=== PATIENT | male | born 1935 | race Caucasian/White ===

== ENCOUNTER 2020-07-19 09:13 | Emergency (ER) | payer MEDICARE ==
[2020-07-19] MEDS ORDERED: Lidocaine 2% Jelly 10 ML Urojet MUCMEM ONE (09:56)
--- NOTE | 2020-07-19 10:33 | EDM.PDOC ---
ED HPI GENERAL MEDICAL PROBLEM - General Chief Complaint: Genitourinary Problem Stated Complaint: URINE IN BLOOD Time Seen by Provider: 07/19/20 10:20 Source of Information: Reports: Patient History Limitations: Reports: No Limitations - History of Present Illness INITIAL COMMENTS - FREE TEXT/NARRATIVE: Patient presents after being initially evaluated in the [facility] walk-in clinic today because of bloody urine. This began a couple days ago and has increased in intensity since then. 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 He has done generally well since then although he has not been to see a doctor for anything in slightly over a year. He was seen by one of the nurse practitioners at his hometown clinic in [place] a month ago to get medications renewed. He is not aware of any particular evaluation done or results of same. He has no pain when urinating but it has been difficult for him to get urine out. He also describes some almost constipation with difficulty pushing stool out recently. He denies hard, pamela stool but it was an effort for him to go. It is unclear if the onset of the hematuria was related to those exertional bowel movements? He otherwise denies fever or chills, nausea or vomiting, cough or fever. Onset: Gradual Duration: Day(s): (3) Severity: Mild Improves with: Reports: None Worsens with: Reports: None - Related Data Allergies Allergy/AdvReac Type Severity Reaction Status Date / Time Sulfa (Sulfonamide Allergy Other Verified 07/19/20 09:34 Antibiotics) Home Meds: Home Meds Dorzolamide HCl/Timolol Maleat [Dorzolamide-Timolol Eye Drops] 1 drop OP DAILY 07/19/20 [History] Fluticasone Propionate [Flonase] 2 spray IH BID 07/19/20 [History] Latanoprost [Xalatan] 2.5 ml OP DAILY 07/19/20 [History] Lovastatin 20 mg PO DAILY 07/19/20 [History] Metoprolol Tartrate 50 mg PO DAILY 07/19/20 [History] Omeprazole 20 mg PO DAILY 07/19/20 [History] Temazepam [Restoril] 15 mg PO BEDTIME PRN 07/19/20 [History] Past Medical History HEENT History: Reports: Cataract, Glaucoma, Impaired Vision, Macular Degeneration, Other (See Below) Other HEENT History: blind in right eye. Cardiovascular History: Reports: CAD, High Cholesterol, Hypertension, [place] Oncologic (Cancer) History: Reports: Bladder, Renal - Past Surgical History HEENT Surgical History: Reports: Cataract Surgery Cardiovascular Surgical History: Reports: Coronary Artery Bypass Male Surgical History: Reports: Nephrectomy, Other (See Below) Other Male Surgeries/Procedures: kidney removed d/t cancer. bladder cancer. Social & Family History - Tobacco Use Tobacco Use Status *Q: Never Tobacco User - Caffeine Use Caffeine Use: Reports: Coffee - Recreational Drug Use Recreational Drug Use: No ED ROS GENERAL - Review of Systems Review Of Systems: See Below Constitutional: Reports: No Symptoms HEENT: Reports: No Symptoms Respiratory: Reports: No Symptoms Cardiovascular: Reports: No Symptoms GI/Abdominal: Reports: Constipation (What he describes as "almost constipation".). Denies: Abdominal Pain : Reports: Frequency, Hematuria. Denies: Discharge, Dysuria, Flank Pain, Urgency Musculoskeletal: Reports: No Symptoms Skin: Reports: No Symptoms ED EXAM, RENAL/ - Physical Exam Exam: See Below Text/Narrative:: This is a quiet adult male interviewed in room 4. He is accompanied by family who provide additional historical background. Patient is a man of few words. Exam Limited By: No Limitations General Appearance: Alert, No Apparent Distress Neck: Supple Respiratory/Chest: No Respiratory Distress, Lungs Clear Cardiovascular: Regular Rate, Rhythm GI/Abdominal: Soft, Non-Tender, No Distention Extremities: Normal Inspection Neurological: Alert, Oriented, Slow to Respond Course - Vital Signs Last Recorded V/S: Last Vital Signs Temp 35.5 C L 07/19/20 09:42 Pulse 81 07/19/20 15:03 Resp 12 07/19/20 10:40 BP 155/55 H 07/19/20 15:03 Pulse Ox 98 07/19/20 13:12 - Orders/Labs/Meds Orders: Active Orders 24 hr Category Date Time Status Insert Urinary Catheter [OM.PC] Q24H Care 07/19/20 10:00 Ordered Urinary Catheter Assessment [RC] ASDIRECTED Care 07/19/20 09:57 Active Sodium Chloride 0.9% [Normal Saline] 1,000 ml Med 07/19/20 13:00 Active IV ASDIRECTED Sodium Chloride 0.9% [Saline Flush] Med 07/19/20 10:36 Active 10 ml FLUSH ASDIRECTED PRN Saline Lock Insert [OM.PC] Routine Oth 07/19/20 10:36 Ordered Medication Orders Sodium Chloride (Normal Saline) 1,000 mls @ 250 mls/hr IV ASDIRECTED MARYBEL Last Admin: 07/19/20 13:14 Dose: 250 mls/hr Documented by: SHANTE Sodium Chloride (Saline Flush) 10 ml FLUSH ASDIRECTED PRN PRN Reason: Keep Vein Open Last Admin: 07/19/20 11:11 Dose: 10 ml Documented by: SHANTE Labs: Laboratory Tests 07/19/20 07/19/20 07/19/20 Range/Units 10:06 10:58 10:58 WBC 7.6 (4.5-11.0) K/uL RBC 3.77 L (4.30-5.90) M/uL Hgb 11.7 L (12.0-15.0) g/dL Hct 36.3 L (40.0-54.0) % MCV 96 (80-98) fL MCH 31 (27-31) pg MCHC 32 (32-36) % Plt Count 145 L (150-400) K/uL Neut % (Auto) 72 H (36-66) % Lymph % (Auto) 14 L (24-44) % [place] % (Auto) 10 H (2-6) % Eos % (Auto) 4 (2-4) % Baso % (Auto) 1 (0-1) % PT 11.4 (9.5-12.0) sec INR 1.05 (0.80-1.20) Sodium (140-148) mmol/L Potassium (3.6-5.2) mmol/L Chloride (100-108) mmol/L Carbon Dioxide (21-32) mmol/L Anion Gap (5.0-14.0) mmol/L BUN (7-18) mg/dL Creatinine (0.8-1.3) mg/dL Est Cr Clr Drug Dosing mL/min Estimated GFR (MDRD) (>60) Glucose (74-106) mg/dL Calcium (8.5-10.1) mg/dL Total Bilirubin (0.2-1.0) mg/dL AST (15-37) U/L ALT (12-78) U/L Alkaline Phosphatase (46-116) U/L Total Protein (6.4-8.2) g/dL Albumin (3.4-5.0) g/dL Globulin (2.3-3.5) g/dL Albumin/Globulin Ratio (1.2-2.2) Urine Color Red A (YELLOW) Urine Appearance Turbid A (CLEAR) Urine pH TNP Ur Specific [place] TNP Urine Protein TNP Urine Glucose (UA) TNP Urine Ketones TNP Urine Occult Blood Large (NEGATIVE) Urine Nitrite TNP Urine Bilirubin TNP Urine Urobilinogen TNP Ur Leukocyte Esterase TNP Urine RBC Packed H (0-5) Urine WBC 0-5 (0-5) Ur Epithelial Cells Rare Amorphous Sediment Occasional Urine Bacteria Occasional Urine Mucus Rare Urinalysis Comment 07/19/20 Range/Units 10:58 WBC (4.5-11.0) K/uL RBC (4.30-5.90) M/uL Hgb (12.0-15.0) g/dL Hct (40.0-54.0) % MCV (80-98) fL MCH (27-31) pg MCHC (32-36) % Plt Count (150-400) K/uL Neut % (Auto) (36-66) % Lymph % (Auto) (24-44) % [place] % (Auto) (2-6) % Eos % (Auto) (2-4) % Baso % (Auto) (0-1) % PT (9.5-12.0) sec INR (0.80-1.20) Sodium 139 L (140-148) mmol/L Potassium 4.0 (3.6-5.2) mmol/L Chloride 101 (100-108) mmol/L Carbon Dioxide 27 (21-32) mmol/L Anion Gap 15.0 H (5.0-14.0) mmol/L BUN 17 (7-18) mg/dL Creatinine 1.4 H (0.8-1.3) mg/dL Est Cr Clr Drug Dosing 36.72 mL/min Estimated GFR (MDRD) 48 L (>60) Glucose 104 (74-106) mg/dL Calcium 8.7 (8.5-10.1) mg/dL Total Bilirubin 0.6 (0.2-1.0) mg/dL AST 17 (15-37) U/L ALT 19 (12-78) U/L Alkaline Phosphatase 63 (46-116) U/L Total Protein 6.6 (6.4-8.2) g/dL Albumin 3.9 (3.4-5.0) g/dL Globulin 2.7 (2.3-3.5) g/dL Albumin/Globulin Ratio 1.4 (1.2-2.2) Urine Color (YELLOW) Urine Appearance (CLEAR) Urine pH Ur Specific [place] Urine Protein Urine Glucose (UA) Urine Ketones Urine Occult Blood (NEGATIVE) Urine Nitrite Urine Bilirubin Urine Urobilinogen Ur Leukocyte Esterase Urine RBC (0-5) Urine WBC (0-5) Ur Epithelial Cells Amorphous Sediment Urine Bacteria Urine Mucus Urinalysis Comment Meds: Medications Generic Name Dose Route Start Last Admin Trade Name Elza PRN Reason Stop Dose Admin Sodium Chloride 1,000 mls @ 250 mls/hr 07/19/20 13:00 07/19/20 13:14 Normal Saline IV 250 mls/hr ASDIRECTED MARYBEL Administration Sodium Chloride 10 ml 07/19/20 10:36 07/19/20 11:11 Saline Flush FLUSH 10 ml ASDIRECTED PRN Administration Keep Vein Open Discontinued Medications Generic Name Dose Route Start Last Admin Trade Name Elza PRN Reason Stop Dose Admin Sodium Chloride 84 mls @ 3.5 mls/sec 07/19/20 14:15 07/19/20 14:43 Normal Saline IV 07/19/20 14:16 3 mls/sec ASDIRECTED MARYBEL Administration Iopamidol 100 ml 07/19/20 14:09 07/19/20 14:43 Isovue-300 (61%) IV 07/19/20 14:10 100 ml ONETIME ONE Administration Lidocaine HCl 10 ml 07/19/20 09:56 07/19/20 10:01 Xylocaine 2% Jelly MUCMEM 07/19/20 09:57 10 ml ONETIME ONE Administration Sodium Chloride 10 ml 07/19/20 14:09 07/19/20 14:43 Saline Flush FLUSH 07/19/20 14:10 10 ml ONETIME ONE Administration - Re-Assessments/Exams Free Text/Narrative Re-Assessment/Exam: 12/12/20 10:50 Bladder scan was performed by nursing staff which showed almost 1000 mL of very bloody urine. He felt more comfortable following drainage of the bladder. I told him that we may need to do a CT scan of his abdomen region given the current hematuria and his prior cancer history. He understands. 07/19/20 12:52 His GFR is in the mid 30s however hematuria is still continuing and there is concern for etiology of this bleeding such as undiagnosed tumor. I will obtain a CT urogram and then follow with IV fluid after the scan is completed. 07/19/20 16:26 Radiology evaluation of his CT urogram has concern for a left-sided bladder mass or possible residual from previous surgery however the bladder is asymmetric. His primary care team is in the [facility] and he would like to see urology in the same system. I spoke with Dr. Ham, the urologist salesperson driver today. CT urogram images have been transmitted to [facility] but were not available for viewing where Dr. Ham was located at the time of our call. He recommends leaving the Alston catheter in place. He will see him in consultation in clinic this coming week. Patient should ensure that he is drinking enough fluids to keep things flowing through. The patient is acquainted with bladder catheters from previous bladder surgery. If patient has concerns about urinary retention or other problems prior to his office visit in urology, he can call them, his primary care team, or return here if feeling worse in any way. No new medications were prescribed. His daughter will actually be the best point of contact to coordinate appointments as the patient's phone does not have voicemail. Departure - Departure Time of Disposition: 15:58 Disposition: Home, Self-Care 01 Clinical Impression: Hematuria syndrome, Bladder mass, Retention of urine - Discharge Information Instructions: Acute Urinary Retention, Male, [id number], Hematuria, Adult Referrals: Mark Strickland NP [Primary Care Provider] - Forms: ED Department Discharge Additional Instructions: Bladder catheter will remain in place. Make sure that you are drinking at least a quart and a half of liquid per day. Liquid coming through the kidneys to the bladder will help blood and clots go out through the catheter. Continue your current medications. The urologist I spoke with, Dr. Ham, will arrange to see you in his clinic this coming week. Have your daughter call the urology scheduling staff on Tuesday to update them regarding points of contact and the eventual date and time of your appointment. The [facility] scheduling number [phone] on Tuesday. You will be directed to the Urology scheduling team. If feeling worse in any way before then, return to ER. Sepsis Event Note (ED) - Evaluation Sepsis Screening Result: No Definite Risk - Focused Exam Vital Signs: Vital Signs Temp Pulse Resp BP Pulse Ox 07/19/20 15:03 81 155/55 H 07/19/20 13:12 78 158/71 H 98 07/19/20 12:13 69 153/69 H 98 07/19/20 10:40 68 12 148/66 H 98 07/19/20 09:42 35.5 C L 80 18 160/59 H 98 - My Orders Last 24 Hours: My Active Orders 07/19/20 09:57 Urinary Catheter Assessment [RC] ASDIRECTED 07/19/20 10:00 Insert Urinary Catheter [OM.PC] Q24H 07/19/20 10:36 Sodium Chloride 0.9% [Saline Flush] 10 ml FLUSH ASDIRECTED PRN Saline Lock Insert [OM.PC] Routine 07/19/20 13:00 Sodium Chloride 0.9% [Normal Saline] 1,000 ml IV ASDIRECTED - Assessment/Plan Last 24 Hours: My Active Orders 07/19/20 09:57 Urinary Catheter Assessment [RC] ASDIRECTED 07/19/20 10:00 Insert Urinary Catheter [OM.PC] Q24H 07/19/20 10:36 Sodium Chloride 0.9% [Saline Flush] 10 ml FLUSH ASDIRECTED PRN Saline Lock Insert [OM.PC] Routine 07/19/20 13:00 Sodium Chloride 0.9% [Normal Saline] 1,000 ml IV ASDIRECTED
[2020-07-19] MEDS ORDERED: Sodium Chloride 0.9% 10 ML Syringe FLUSH PRN (10:36)
[2020-07-19] MEDS ORDERED: Sodium Chloride 0.9% 1,000 ML IV SCH (13:00)
[2020-07-19] MEDS ORDERED: Iopamidol 612 MG/ML 500 ML Multipack Bottle IV ONE (14:09)
[2020-07-19] MEDS ORDERED: Sodium Chloride 0.9% 10 ML Syringe FLUSH ONE (14:09)
--- NOTE | 2020-07-19 14:59 | CRLCT ---
Indication: Gross hematuria. History of bladder cancer/nephrectomy. Technique: Multiple contiguous axial images were obtained from the lung bases is symphysis pubis without intravenous contrast enhancement. Then, after the intravenous administration 100 milliliters Isovue-300, multiple contiguous axial images were obtained through the level of the kidneys. Then, delayed images were obtained from the lung bases through the symphysis pubis. Please note that all CT scans at this facility use dose modulation, iterative reconstruction, and/or weight-based dosing when appropriate to reduce radiation dose to as low as reasonably achievable. Comparison: None Findings: On the unenhanced images, trace bilateral pleural effusions are identified. The heart is normal in size. No pericardial effusions identified. A trace hiatal hernias identified. Gallstones are identified. Aortic calcifications are identified. A Alston catheter is in place. The liver, pancreas, spleen, and left adrenal gland are normal. Gallstones are identified. No intrahepatic biliary ductal dilatation is identified. There is mild fatty replacement of the pancreas. In the pelvis, the prostate gland is borderline in size. The small and large bowel are normal in caliber. Colonic diverticulosis is identified. There is no evidence of diverticulitis. The aorta is normal in caliber. Vascular calcifications are identified. Degenerative changes of the spine are identified. Vacuum disc phenomenon is identified at T12-L1, L3-4, L4-5, and L5-S1. No lytic or blastic lesions are identified. Postoperative changes of right nephrectomy are identified. Postoperative changes of right adrenalectomy are identified. The left kidney enhances within normal limits. No renal masses are identified on the left. No hydronephrosis is identified on the left. A Alston catheter is present within the urinary bladder. Thickening of the wall of the urinary bladder is identified. Indentation is identified along left inferior aspect of the bladder. This is seen on coronal images number 64, series 9 and axial image number 116, series 4. This is believed to be due from the prostate gland. However, a mass within the bladder at this level cannot be excluded. Superior to this, near the dome of the bladder, there is a soft tissue density. This measures 2.2 x 1.8 x 3.2 cm in size. Residual/recurrent disease cannot be completely excluded. Consideration should be given to a cystoscopy. Impression: Postoperative changes of a right nephrectomy and right adrenalectomy. Thickening of the wall of the urinary bladder. The suspected soft tissue mass is identified to the left of midline superiorly, with residual/recurrent disease not being excluded. Please note that all CT scans at this facility use dose modulation, iterative reconstruction, and/or weight-based dosing when appropriate to reduce radiation dose to as low as reasonably achievable. Dictated by Justyna Arregaa MD @ Jul 19 2020 2:45PM Signed by Dr. Justyna Arreaga @ Jul 19 2020 2:57PM
== END 2020-07-19 16:31 | disposition home or self-care (01) ==
LOC: JP.ED 09:13
DX: N32.9 Bladder disorder, unspecified (principal); R33.9 Retention of urine, unspecified; I10 Essential (primary) hypertension; E78.00 Pure hypercholesterolemia, unspecified; I25.2 Old myocardial infarction; I25.10 Atherosclerotic heart disease of native coronary artery without angina pectoris; Z88.2 Allergy status to sulfonamides; Z79.899 Other long term (current) drug therapy
CPT/HCPCS: 36415; 51702; 74178; 80053; 81001; 85025; 85610; 99283; 99284; J7030; Q9967

== ENCOUNTER 2020-07-20 12:51 | Emergency (ER) | payer MEDICARE ==
--- NOTE | 2020-07-20 14:53 | EDM.PDOC ---
ED HPI GENERAL MEDICAL PROBLEM - General Chief Complaint: Genitourinary Problem Stated Complaint: CATH IS PLUGGED Time Seen by Provider: 07/20/20 14:48 Source of Information: Reports: Patient History Limitations: Reports: No Limitations - History of Present Illness INITIAL COMMENTS - FREE TEXT/NARRATIVE: pt was not getting drainage in the alicia bag. It did appear that he had this plugged with the position it was in. Onset: Today, Other (pt had the cath put in yesterday and he had ovwer 1000 cc of fluid at that time. ) Duration: Hour(s): Location: Reports: Abdomen - Related Data Allergies Allergy/AdvReac Type Severity Reaction Status Date / Time Sulfa (Sulfonamide Allergy Other Verified 07/20/20 13:21 Antibiotics) Home Meds: Home Meds Dorzolamide HCl/Timolol Maleat [Dorzolamide-Timolol Eye Drops] 1 drop OP DAILY 07/19/20 [History] Fluticasone Propionate [Flonase] 2 spray IH BID 07/19/20 [History] Latanoprost [Xalatan] 2.5 ml OP DAILY 07/19/20 [History] Lovastatin 20 mg PO DAILY 07/19/20 [History] Metoprolol Tartrate 50 mg PO DAILY 07/19/20 [History] Omeprazole 20 mg PO DAILY 07/19/20 [History] Temazepam [Restoril] 15 mg PO BEDTIME PRN 07/19/20 [History] Past Medical History HEENT History: Reports: Cataract, Glaucoma, Impaired Vision, Macular Degeneration, Other (See Below) Other HEENT History: blind in right eye. Cardiovascular History: Reports: CAD, High Cholesterol, Hypertension, [place] Oncologic (Cancer) History: Reports: Bladder, Renal - Past Surgical History HEENT Surgical History: Reports: Cataract Surgery Cardiovascular Surgical History: Reports: Coronary Artery Bypass Male Surgical History: Reports: Nephrectomy, Other (See Below) Other Male Surgeries/Procedures: kidney removed d/t cancer. bladder cancer. Social & Family History - Caffeine Use Caffeine Use: Reports: Coffee ED ROS GENERAL - Review of Systems Review Of Systems: See Below Constitutional: Reports: No Symptoms HEENT: Reports: No Symptoms Respiratory: Reports: No Symptoms Cardiovascular: Reports: No Symptoms Endocrine: Reports: No Symptoms GI/Abdominal: Reports: No Symptoms : Reports: Other (pt feels like his alicia is not draining right. ) Musculoskeletal: Reports: No Symptoms ED EXAM, RENAL/ - Physical Exam Exam: See Below Text/Narrative:: pt arrived wityh a history of not draining his bag and he had 800 cc in the bag. He had the tube plugged because of the position it was in. Exam Limited By: No Limitations General Appearance: Alert, No Apparent Distress, Anxious (Male) Exam: Other ( It was irrigated and it was draining well. He had a leg bag placed and this appeared to work. He plans to make an appointment with urology. ) Course - Vital Signs Last Recorded V/S: Last Vital Signs Temp 37.0 C 07/20/20 13:43 Pulse 74 07/20/20 13:43 Resp 16 07/20/20 13:43 BP 180/80 H 07/20/20 13:43 Pulse Ox 99 07/20/20 13:43 Departure - Departure Time of Disposition: 14:53 Disposition: Home, Self-Care 01 Condition: Fair Clinical Impression: Alicia catheter problem - Discharge Information Referrals: Mark Strickland NP [Primary Care Provider] - Care Plan Goals: push fluids, rtc if further problems. Sepsis Event Note (ED) - Evaluation Sepsis Screening Result: No Definite Risk - Focused Exam Vital Signs: Vital Signs Temp Pulse Resp BP Pulse Ox 07/20/20 13:43 37.0 C 74 16 180/80 H 99 07/20/20 13:27 37.0 C 74 16 180/80 H 99
== END 2020-07-20 15:00 | disposition home or self-care (01) ==
LOC: JP.ED 12:51
DX: T83.098A Other mechanical complication of other urinary catheter, initial encounter (principal); I25.10 Atherosclerotic heart disease of native coronary artery without angina pectoris; E78.00 Pure hypercholesterolemia, unspecified; I10 Essential (primary) hypertension; I25.2 Old myocardial infarction; Z79.899 Other long term (current) drug therapy; Z88.2 Allergy status to sulfonamides
CPT/HCPCS: 99283

== ENCOUNTER 2022-06-24 19:07 | Observation (INO) | payer MEDICARE ==
[2022-06-24] MEDS ORDERED: Sodium Chloride 0.9% 10 ML Syringe FLUSH PRN (19:26)
[2022-06-24] MEDS ORDERED: Sodium Chloride 0.9% 1,000 ML IV SCH (19:30)
[2022-06-24] MEDS ORDERED: Metoprolol Tartrate 50 MG Tab PO SCH (20:30)
[2022-06-24 20:40] LABS: ESTIMATED GFR 59 mL/min (>60)
[2022-06-24] MEDS ORDERED: Pantoprazole 40 MG Tab.CR PO SCH (21:00)
[2022-06-24] MEDS ORDERED: Ondansetron 4 MG/2 ML SDV IV PRN (22:12)
[2022-06-24] MEDS ORDERED: oxyCODONE 5 MG Tab PO PRN (22:12)
[2022-06-24] MEDS ORDERED: Morphine 2 MG/ML SYRINGE IVPUSH PRN (22:12)
[2022-06-24] MEDS ORDERED: LORazepam 2 MG/ML SDV IV PRN (22:12)
[2022-06-24] MEDS ORDERED: Ondansetron 4 MG Tab.DIS PO PRN (22:12)
[2022-06-24] MEDS ORDERED: Albuterol 0.083% 2.5 MG/3 ML Neb Soln NEB PRN (22:12)
[2022-06-24] MEDS ORDERED: Docusate Sodium 100 MG Cap PO PRN (22:12)
[2022-06-24] MEDS ORDERED: Acetaminophen 325 MG Tab PO PRN (22:12)
[2022-06-24] MEDS ORDERED: Bisacodyl 5 MG Tab PO PRN (22:12)
[2022-06-24] MEDS: Temazepam 15 MG Cap PO SCH (23:46)
[2022-06-24] MEDS: Sodium Chloride 0.9% 1,000 ML IV SCH (23:46)
[2022-06-24] MEDS: Fluticasone NASAL Spray 16 GM Bottle NASBOTH SCH (23:47)
[2022-06-25 05:18] LABS: ESTIMATED GFR 65 mL/min (>60)
[2022-06-25] MEDS ORDERED: Potassium Chloride 20 MEQ Tab.ER PO ONE (08:13)
[2022-06-25] MEDS: Enoxaparin 40 MG/0.4 ML Syringe SUBCUT SCH (11:08)
[2022-06-25] MEDS: Dorzolamide/Timolol 2%-0.5% Ophth Soln 10 ML Bottle EYERT SCH (11:09)
[2022-06-25] MEDS: Fluticasone NASAL Spray 16 GM Bottle NASBOTH SCH ×2 (11:10→20:54)
[2022-06-25] MEDS: Latanoprost 0.005% Ophth Soln 2.5 ML Bottle EYERT SCH (11:10)
[2022-06-25] MEDS: Metoprolol Tartrate 50 MG **PTOM PO SCH ×2 (11:24→20:54)
[2022-06-25] MEDS: OMEPRAZOLE 20MG **PTOM PO SCH (20:54)
[2022-06-25] MEDS: LOVASTATIN 20 MG PO SCH (20:54)
[2022-06-25] MEDS: Temazepam 15 MG Cap PO SCH (20:57)
[2022-06-25] MEDS ORDERED: Pravastatin 20 MG Tab PO SCH (21:00)
[2022-06-26] MEDS: Sodium Chloride 0.9% 1,000 ML IV SCH ×3 (00:53→16:50)
[2022-06-26] MEDS: Latanoprost 0.005% Ophth Soln 2.5 ML Bottle EYERT SCH (08:41)
[2022-06-26] MEDS: Fluticasone NASAL Spray 16 GM Bottle NASBOTH SCH ×2 (08:42→20:38)
[2022-06-26] MEDS: Enoxaparin 40 MG/0.4 ML Syringe SUBCUT SCH (08:42)
[2022-06-26] MEDS: Metoprolol Tartrate 50 MG **PTOM PO SCH ×2 (08:42→20:35)
[2022-06-26] MEDS: Dorzolamide/Timolol 2%-0.5% Ophth Soln 10 ML Bottle EYERT SCH (08:42)
[2022-06-26] MEDS ORDERED: Furosemide 40 MG/4 ML VIAL IVPUSH ONE (10:55)
[2022-06-26] MEDS: LOVASTATIN 20 MG PO SCH (20:37)
[2022-06-26] MEDS: OMEPRAZOLE 20MG **PTOM PO SCH (20:37)
[2022-06-26] MEDS: Temazepam 15 MG Cap PO SCH (20:39)
[2022-06-27] MEDS: Sodium Chloride 0.9% 1,000 ML IV SCH (00:50)
[2022-06-27] MEDS: Enoxaparin 40 MG/0.4 ML Syringe SUBCUT SCH (08:11)
[2022-06-27] MEDS: Metoprolol Tartrate 50 MG **PTOM PO SCH ×2 (08:11→21:02)
[2022-06-27] MEDS: Dorzolamide/Timolol 2%-0.5% Ophth Soln 10 ML Bottle EYERT SCH (08:11)
[2022-06-27] MEDS: Fluticasone NASAL Spray 16 GM Bottle NASBOTH SCH ×2 (08:12→21:03)
[2022-06-27] MEDS: Latanoprost 0.005% Ophth Soln 2.5 ML Bottle EYERT SCH (08:12)
[2022-06-27] MEDS: OMEPRAZOLE 20MG **PTOM PO SCH (21:01)
[2022-06-27] MEDS: LOVASTATIN 20 MG PO SCH (21:02)
[2022-06-27] MEDS: Temazepam 15 MG Cap PO SCH (21:06)
[2022-06-28] MEDS: Metoprolol Tartrate 50 MG **PTOM PO SCH (08:14)
[2022-06-28] MEDS: Fluticasone NASAL Spray 16 GM Bottle NASBOTH SCH (08:17)
[2022-06-28] MEDS: Enoxaparin 40 MG/0.4 ML Syringe SUBCUT SCH (08:17)
[2022-06-28] MEDS: Latanoprost 0.005% Ophth Soln 2.5 ML Bottle EYERT SCH (08:17)
[2022-06-28] MEDS: Dorzolamide/Timolol 2%-0.5% Ophth Soln 10 ML Bottle EYERT SCH (08:18)
[2022-06-28] MEDS ORDERED: Sodium Phosphate,Monobasic/Sodium Phosphate,Dibasic Enema 133 ML Bottle RECTAL PRN (13:17)
[2022-06-28] MEDS ORDERED: Bisacodyl 10 MG Supp RECTAL ONE (13:35)
== END 2022-06-28 14:25 | disposition home health service (06) ==
LOC: JP.ED 19:07 → JP.MS 21:54
PROVIDERS: ADMIT Internal Medicine; ATTEND Hospitalist
DX: T79.6XXA Traumatic ischemia of muscle, initial encounter (principal); H35.30 Unspecified macular degeneration; H54.40 Blindness, one eye, unspecified eye; I10 Essential (primary) hypertension; E78.00 Pure hypercholesterolemia, unspecified; I25.10 Atherosclerotic heart disease of native coronary artery without angina pectoris; F17.210 Nicotine dependence, cigarettes, uncomplicated; I48.20 Chronic atrial fibrillation, unspecified; M19.042 Primary osteoarthritis, left hand; Z98.890 Other specified postprocedural states; Z90.5 Acquired absence of kidney; Z88.2 Allergy status to sulfonamides; Z79.899 Other long term (current) drug therapy; Z20.822 Contact with and (suspected) exposure to COVID-19; W19.XXXA Unspecified fall, initial encounter
CPT/HCPCS: 36415; 73502; 80048; 80053; 81001; 82550; 83605; 84145; 84484; 85025; 90662; 93005; 96361; 96372; 96374; 97110; 97116; 97162; 97760; 99285; A9270; G0008; G0378; J1650; J1940; J7030; U0002

== ENCOUNTER 2023-11-09 06:26 | Inpatient (IN) | payer MEDICARE ==
[2023-11-09 06:50] LABS: BASOPHILS ABSOLUTE AUTO 0.09 K/uL (0.00-0.10); BASOPHILS PERCENT AUTO 0.8 % (0.1-1.3); EOSINOPHILS ABSOLUTE AUTO 0.28 K/uL (0.00-0.40); EOSINOPHILS PERCENT AUTO 2.6 % (0.0-5.4); HEMATOCRIT 41.1 % (38.4-49.7); HEMOGLOBIN 13.9 g/dL (12.9-16.9); IMMATURE GRAN ABSOLUTE AUTO 0.04 K/uL (0.00-0.23); IMMATURE GRAN PERCENT AUTO 0.4 % (0.0-0.7); LYMPHOCYTES ABSOLUTE AUTO 1.52 K/uL (0.8-3.3); LYMPHOCYTES PERCENT AUTO 14.3 % (11.4-47.7); MEAN CORPUSCULAR HEMOGLOBIN 31.3 pg (31.6-35.5); MEAN CORPUSCULAR HGB CONC 33.8 g/dL (31.6-35.5); MEAN CORPUSCULAR VOLUME 92.6 fL (81.4-99.0); MONOCYTES PERCENT AUTO 10.3 % (3.3-12.6); NEUTROPHILS PERCENT AUTO 71.6 % (40.0-78.1); PLATELET COUNT,PLT 160 K/uL (130-375); RED BLOOD CELL COUNT 4.44 M/uL (4.14-5.76); WHITE BLOOD CELL COUNT,WBC 10.6 K/uL (3.2-11.0)
[2023-11-09 07:22] LABS: BLOOD UREA NITROGEN,BUN 23 mg/dL (7-18); CALCIUM 9.4 mg/dL (8.5-10.1); CARBON DIOXIDE,CO2 30 mmol/L (21-32); CHLORIDE,CL 101 mmol/L (100-108); CREATININE 1.7 mg/dL (0.8-1.3); EST CRCL DRUG DOSING (CG) 28.62 mL/min; ESTIMATED GFR 39 mL/min (>60); GLUCOSE RANDOM 116 mg/dL (74-106); POTASSIUM,K 4.1 mmol/L (3.6-5.2); SODIUM,NA 139 mmol/L (140-148)
[2023-11-09 07:23] LABS: ANION GAP 12.1 mmol/L (5.0-14.0); C-REACTIVE PROTEIN < 0.50 mg/dL (<0.50)
[2023-11-09] MEDS: Sodium Chloride 0.9% 1,000 ML IV SCH (08:34)
[2023-11-09 09:23] LABS: APPEARANCE,URINE CLEAR (CLEAR); BILIRUBIN,URINE NEGATIVE (NEGATIVE); COLOR,URINE YELLOW (YELLOW); GLUCOSE,URINE NEGATIVE (NEGATIVE); KETONES,URINE NEGATIVE (NEGATIVE); LEUKOCYTE ESTERASE,URINE TRACE (NEGATIVE); NITRITE,URINE NEGATIVE (NEGATIVE); OCCULT BLOOD,URINE NEGATIVE (NEGATIVE); PH,URINE 7.5 (5.0-8.0); PROTEIN,URINE 30 mg/dL (NEGATIVE); UROBILINOGEN,URINE 0.2 EU/dL (0.2-1.0)
[2023-11-09 09:29] LABS: RBC,URINE 0-5 (0-5)
[2023-11-09 09:30] LABS: AMORPHOUS SEDIMENT,URINE NOT SEEN; BACTERIA,URINE FEW; EPITHELIAL CELLS,URINE RARE; MUCUS,URINE RARE
[2023-11-09] MEDS: cefTRIAXone 1 GM in Sodium Chloride 0.9% 50 ML IV ONE (10:31)
[2023-11-09 13:55] LABS: CORONAVIRUS COVID-19 NAA NEGATIVE (NEGATIVE); INFLUENZA A NAA NEGATIVE (NEGATIVE); INFLUENZA B NAA NEGATIVE (NEGATIVE); RESPIRATORY SYNCYTIAL VIR NAA NEGATIVE (NEGATIVE)
[2023-11-09] MEDS ORDERED: Ondansetron 4 MG Tab.DIS PO PRN (14:08)
[2023-11-09] MEDS ORDERED: Magnesium Hydroxide 400 MG/5 ML Susp 30 ML Cup PO PRN (14:08)
[2023-11-09] MEDS ORDERED: Ondansetron 4 MG/2 ML SDV IV PRN (14:08)
[2023-11-09] MEDS ORDERED: Albuterol 0.083% 2.5 MG/3 ML Neb Soln NEB PRN (14:08)
[2023-11-09] MEDS ORDERED: Acetaminophen 325 MG Tab PO PRN (14:08)
[2023-11-09] MEDS ORDERED: Sennosides/Docusate Sodium 50-8.6 MG Tab PO PRN (14:08)
[2023-11-09] MEDS: Furosemide 20 MG/2 ML VIAL IVPUSH ONE (15:03)
[2023-11-09] MEDS: Fluticasone NASAL Spray 16 GM Bottle NASBOTH SCH (21:12)
[2023-11-09] MEDS: Metoprolol Tartrate 50 MG Tab PO SCH (21:12)
[2023-11-09] MEDS: Lactobacillus Rhamnosus GG (Probiotic) Cap PO SCH (21:12)
[2023-11-09] MEDS: Pravastatin 20 MG Tab PO SCH (21:13)
[2023-11-10 06:05] LABS: HEMATOCRIT 38.2 % (38.4-49.7); HEMOGLOBIN 12.7 g/dL (12.9-16.9); MEAN CORPUSCULAR HEMOGLOBIN 31.3 pg (31.6-35.5); MEAN CORPUSCULAR HGB CONC 33.2 g/dL (31.6-35.5); MEAN CORPUSCULAR VOLUME 94.1 fL (81.4-99.0); RED BLOOD CELL COUNT 4.06 M/uL (4.14-5.76); WHITE BLOOD CELL COUNT,WBC 7.1 K/uL (3.2-11.0)
[2023-11-10 06:21] LABS: ANION GAP 7.9 mmol/L (5.0-14.0); CALCIUM 8.8 mg/dL (8.5-10.1); CREATININE 1.4 mg/dL (0.8-1.3); EST CRCL DRUG DOSING (CG) 34.75 mL/min
[2023-11-10] MEDS: Pantoprazole 40 MG Tab.CR PO SCH (07:22)
[2023-11-10] MEDS: Dorzolamide/Timolol 2%-0.5% Ophth Soln 10 ML Bottle EYEBOTH SCH (09:34)
[2023-11-10] MEDS: Furosemide 20 MG/2 ML VIAL IVPUSH SCH (10:07)
[2023-11-10] MEDS: cefTRIAXone 2 GM in Sodium Chloride 0.9% 50 ML IV SCH (14:26)
[2023-11-10] MEDS: Latanoprost 0.005% Ophth Soln 2.5 ML Bottle EYEBOTH SCH (21:49)
[2023-11-10] MEDS: Temazepam 15 MG Cap PO PRN (21:49)
[2023-11-10] MEDS: Melatonin 3 MG Tab PO PRN (21:49)
[2023-11-11 04:50] LABS: ANION GAP 8.6 mmol/L (5.0-14.0); CALCIUM 8.8 mg/dL (8.5-10.1); CREATININE 1.4 mg/dL (0.8-1.3); EST CRCL DRUG DOSING (CG) 34.75 mL/min; POTASSIUM,K 4.2 mmol/L (3.6-5.2)
== END 2023-11-11 16:34 | disposition home or self-care (01) | DRG 565 ==
LOC: JP.ED 06:26 → JP.MS 13:15
PROVIDERS: ADMIT Internal Medicine; ATTEND Internal Medicine
DX: T79.6XXA Traumatic ischemia of muscle, initial encounter (principal); R55 Syncope and collapse; I13.0 Hypertensive heart and chronic kidney disease with heart failure and stage 1 through stage 4 chronic kidney disease, or unspecified chronic kidney disease; I10 Essential (primary) hypertension; I50.32 Chronic diastolic (congestive) heart failure; N30.00 Acute cystitis without hematuria; I25.2 Old myocardial infarction; E78.00 Pure hypercholesterolemia, unspecified; I25.10 Atherosclerotic heart disease of native coronary artery without angina pectoris; N18.32 Chronic kidney disease, stage 3b; I27.20 Pulmonary hypertension, unspecified; H40.9 Unspecified glaucoma; S90.415A Abrasion, left lesser toe(s), initial encounter; S90.414A Abrasion, right lesser toe(s), initial encounter; N40.0 Benign prostatic hyperplasia without lower urinary tract symptoms; Z98.49 Cataract extraction status, unspecified eye; Z95.1 Presence of aortocoronary bypass graft; Z90.5 Acquired absence of kidney; Z88.2 Allergy status to sulfonamides; Z79.899 Other long term (current) drug therapy; Z85.51 Personal history of malignant neoplasm of bladder; W01.0XXA Fall on same level from slipping, tripping and stumbling without subsequent striking against object, initial encounter; Y92.009 Unspecified place in unspecified non-institutional (private) residence as the place of occurrence of the external cause
CPT/HCPCS: 0241U; 36415; 70450; 71045; 72125; 76377; 80048; 81001; 82550; 84484; 85025; 85027; 86140; 87086; 87088; 87186; 93005; 93010; 94640; 96365; 97161; 99222; 99232; 99238; 99285; A9270-GY; J0696; J1940; J3490; J7030